=== PATIENT | female | born 1965 | race Caucasian/White ===

== ENCOUNTER 2016-12-23 20:30 | Inpatient (IN) | payer OTHER ==
--- NOTE | ~2016-12-23 | CN ---
Consultation Report [facility] [address] [place]. [address] NAME: CHIKA MALAGON : 63 STATUS : ADM IN [facility]#: [id number] AGE: 51 ADM/REG DATE : 12/23/16 MR#: [id number] REPORT SERV DATE: 12/24/16 DICTATED BY: EMMY ROE DATE: 12/24/16 REPORT STATUS : Draft TRANSCRIBED BY: MODRony DATE: 12/24/16 NEPHROLOGY CONSULTATION DATE OF CONSULTATION: 12/24/2016 INDICATION FOR EVALUATION: Acute kidney injury. HISTORY OF PRESENT ILLNESS: Ms. Malagon is a 51-year-old female, who is seen for acute kidney injury following admission for weakness, nausea, and decreased p.o. intake. Her creatinine was 0.46 in 2012 and marcos to 6.08 on 12/23/2016 with a sodium of 127 and a potassium of 3.8. She apparently was using nonsteroidal antiinflammatory drugs frequently including Mobic and Aleve, was on lisinopril and Maxzide at home. Upon presentation, CT scan of the abdomen was obtained and she was found to have long segment colitis. Her kidney anatomy appeared to be intact with no evidence of hydronephrosis or mass. She was hypotensive on arrival with a blood pressure of 80/50. Since admission, she has been on pressors, which are now on hold. Received IV fluids and undergone antibiotic therapy with improvement. Her creatinine has improved to 3.48, procalcitonin is 38.5, potassium 4.1, sodium 130. PAST MEDICAL HISTORY: Recent liposuction, irritable bowel syndrome with constipation, left breast cancer, status post surgeries, chemotherapy radiation, osteoarthritis, fibromyalgia, positive JOCELYNE. PAST SURGICAL HISTORY: Cholecystectomy and left breast surgery, liposuction, hysterectomy, left knee surgery, history of right chest port which has been removed. SOCIAL HISTORY: Smokes half pack a day for years. Drinks alcohol daily, but none x5 days, is , and uses no illicit drugs. FAMILY HISTORY: Mother with kidney failure. No family members with requiring dialysis. Father with hypertension, heart disease, more distant relatives with diabetes. REVIEW OF SYSTEMS: HEENT: No change in visual acuity. No sinusitis, epistaxis, pharyngitis. PULMONARY: Has had some shortness of breath. No cough or hemoptysis. CARDIAC: Denies chest pain. No recent lower extremity edema. GI: Recent nausea, decreased p.o. intake. Some loose stools with typical history of chronic constipation. : No gross hematuria, dysuria, pyuria. Urine output may have decreased recently. MUSCULOSKELETAL: Pain in back. INTEGUMENT: No rash. No itching. NEUROLOGIC: No seizure activity or lateralizing weakness. Remainder of 12-point review of systems negative. Consultation Report [place] [id number] [place]. [address] NAME: CHIKA MALAGON : 63 STATUS : ADM IN PAT#: [id number] AGE: 51 ADM/REG DATE : 12/23/16 MR#: [id number] REPORT SERV DATE: 12/24/16 DICTATED BY: EMMY ROE DATE: 12/24/16 REPORT STATUS : Draft TRANSCRIBED BY: JASMINE DATE: 12/24/16 PHYSICAL EXAMINATION: VITAL SIGNS: Blood pressure 80/50 on arrival, now 104/61, temp 97.9, respiratory rate 21, pulse 83. GENERAL: Somewhat lethargic white female, arousable, responds appropriately. HEENT: Eyes no scleral icterus. Pupils equal, reactive to light. Nares patent. No discharge. Throat, no injection. Mucous membranes moist. NECK: No thyromegaly, masses, bruits. CHEST/LUNGS: Late crackles laterally. No wheezing. No rhonchi. CARDIAC: Regular rate and rhythm. Unable to appreciate murmur, gallop, or rub. ABDOMEN: Some mild lower abdominal tenderness. No guarding. Bowel sounds are normoactive. No hepatosplenomegaly. : Exam not performed. RECTAL: Exam not performed. BREAST: Exam not performed. EXTREMITIES: No edema. No calf tenderness. DERMIS: No rash. No skin lesions. NEUROLOGIC: Cranial nerves appear intact. No lateralizing weakness. PLAN: 1. Concur with present therapy including IV fluids, antibiotics, and medication adjustments. 2. Avoid nonsteroidal antiinflammatory drugs. 3. Concur with holding CHAR inhibitor, presently appears to be resolving acute kidney injury and will likely to avoid any dialysis therapy. LILA/JASMINE Emmy Roe M.D. / [id number] CC: Danish Leigh M.D.
--- NOTE | ~2016-12-23 | HP ---
History And Physical [place] [id number] [facility] [place]. [address] NAME: CHIKA ROMERO : 63 STATUS : ADM IN PAT#: [id number] AGE: 51 ADM/REG DATE : 12/23/16 MR#: [id number] REPORT SERV DATE: 12/24/16 DICTATED BY: TYESHA NUNES DATE: 12/24/16 REPORT STATUS : Draft TRANSCRIBED BY: MODRony DATE: 12/24/16 DATE OF ADMISSION: 12/23/2016 CHIEF COMPLAINT: Not feeling well since recent liposuction. HISTORY OF PRESENT ILLNESS: The patient is a 51-year-old female with past medical history of left breast cancer, status post chemoradiation and multiple surgeries, who approximately 6 days ago was in [place] to have liposuction from abdomen to breast tissue. After the procedure, was doing okay, but used up all her pain medications, was prescribed Naprosyn and tramadol afterwards, but got sick after taking 1 morning's worth of Naprosyn, has been on chronic Mobic including blood pressure medications. [id number], who is at bedside reports that the patient stopped drinking and eating throughout the whole week, has only drank approximately a quarter for about 4 ounces from a Sprite bottle, but has not really taken much in or out. The patient does report she still is urinating, but due to not really taking much in she has not really put as much out. The patient does report that she does have IBS history, but has had an irregularity in which she is not having diarrhea after these episodes. Weakness has been chronic, constant, moderate severity for the last week, has had abdominal discomfort that has been dull without radiation. No nausea, vomiting, but has had diarrhea, which typically has IBS related constipation, mild fever, no chills. No redness, palpitations, or wheezing. Nothing worsening or relieving symptoms. Symptoms still currently present. Pain was approximately 4/10 at baseline. REVIEW OF SYSTEMS: Additional 10-point review of systems is negative except for that noted in the HPI. PAST MEDICAL HISTORY: IBS, constipation variant; breast cancer in 2009 on the left side with chemoradiation and multiple surgeries; fibromyalgia; arthritis; JOCELYNE positive. SURGERIES: Liposuction last week in which she had liposuction from abdominal cavity to breast cavity. Additionally, has had history of breast surgeries, hysterectomy, gallbladder, hemorrhoids, left knee, and port on right chest wall with subsequent removal as the patient reported that the port kept getting inverted. SOCIAL HISTORY: The patient has history of half pack per day history for many years, but stopped approximately two days ago. Alcohol history, she drinks approximately two [place], which does have vodka on a daily basis, but last drink was approximately 5 days ago, but does not have any withdrawal type symptoms. Denies any illicits use. Previous occupation was in [place]. FAMILY HISTORY: No diabetes, coronary artery disease, but positive for hypertension. No cancers or CVA. ALLERGIES: ALLERGIES TO ADHESIVE TAPE, SULFASALAZINE, AND TRAMADOL. HOME MEDICATIONS: Fioricet p.r.n., Zyrtec, Klonopin, Cymbalta, Neurontin, Femara, Prinivil, lovastatin, Mobic, Robaxin, Nitrostat, nystatin, Prilosec, trazodone, Maxzide. History And Physical [address] [address] NAME: CHIKA ROMERO : 63 STATUS : ADM IN [facility]#: [id number] AGE: 51 ADM/REG DATE : 12/23/16 MR#: [id number] REPORT SERV DATE: 12/24/16 DICTATED BY: TYESHA NUNES DATE: 12/24/16 REPORT STATUS : Draft TRANSCRIBED BY: JASMINE DATE: 12/24/16 PHYSICAL EXAMINATION: VITAL SIGNS: Blood pressure initially 80/50, temperature 96.8, pulse 100, respirations 19, O2 sats 96%. GENERAL: In no acute distress, but significantly older than stated age with wrinkling of skin. EYES: No scleral icterus. EOMI. ENT: Very dry mucous membranes. Tongue midline. RESPIRATORY: Clear to auscultation. No wheezes. CARDIOVASCULAR: Mildly tachycardic. No rubs. GASTROENTEROLOGY: Mildly tender to palpation in the lower abdominal quadrants, but positive bowel sounds. Negative rebound. GENITOURINARY: Deferred. MUSCULOSKELETAL: Does move all extremities x4. Symmetrical hand strength. SKIN: Wrinkling of the skin throughout, tanned skin and bronzing from radiation on chest wall. LYMPHATIC: No pedal edema. HEMATOLOGIC: No bleeding or bruising. NEUROLOGIC: Alert and oriented. Moves all extremities x4. Symmetrical smile. PSYCHIATRIC: Appropriate mood and affect. LABORATORY AND DIAGNOSTIC DATA: EKG; normal sinus rhythm with mildly prolonged QT at 487, rate 93. No peaked T waves. Lactate 0.9. CBC: WBC count 20.7, H and H 11.2 and 32.6 with MCV of 103.2, platelets 196. INR 1.1. Urinalysis: Negative leukocyte esterase and nitrites. Trace ketones, [address] abdomen and pelvis: Long segment colitis involving the ascending, transverse, and descending colon. No pericolonic abscess, mild infiltration of subcutaneous fat planes consistent with history of recent liposuction. Partially imaged apparent left breast reconstruction as well as postsurgical changes of cholecystectomy and hysterectomy. CMP: Sodium 127, potassium 3.8, chloride 86, bicarb 23, BUN and creatinine 60 and 6.08, glucose of 85, calcium 7.8, albumin 2.8. Total protein 7.6, with globulin of 4.8, alkaline phosphatase 112. LFTs within normal limits. CPK 138, lipase 148. ASSESSMENT AND PLAN: 1. Acute kidney injury. 2. Colitis. 3. Systemic inflammatory response syndrome. 4. Hypotension. 5. Recent liposuction. 6. Irritable bowel syndrome with constipation. 7. Breast cancer history. 8. Tobacco use. 9. Daily alcohol use. 10.Hypovolemic hyponatremia. 11.Microcytic anemia. PLAN: 1. For TONY, has taken 1 day of Naprosyn, but was not able to tolerate, has been taking History And Physical [address] [address] NAME: CHIKA ROMERO : 63 STATUS : ADM IN [facility]#: [id number] AGE: 51 ADM/REG DATE : 12/23/16 MR#: [id number] REPORT SERV DATE: 12/24/16 DICTATED BY: TYESHA NUNES DATE: 12/24/16 REPORT STATUS : Draft TRANSCRIBED BY: JASMINE DATE: 12/24/16 Mobic, lisinopril, HCTZ triamterene, CHAR inhibitor, and is currently hypovolemic, hypotensive. As the patient has had decreased p.o. intake, IV fluids given in the emergency room. No peak T-waves on EKG. Monitor urine lytes, serial BMP, ultrasound of kidneys. We will also additionally consult Nephrology in a.m. due to the patient's prior creatinine of 0.4, currently 6, but is still making urine. 2. Colitis. IV fluids, IV antibiotics. Zosyn given in the emergency room. Need to rule out C diff given WBC count greater than 20,000 and although the patient does have IBS typically has constipation variant, has been reporting having diarrhea throughout the week since procedure. 3. SIRS. Treat colitis, IV fluids. TONY. IV antibiotics given in the emergency room. Tachycardia, improving. Does have leukocytosis, rule out additional infectious etiologies for colitis. 4. Hypotension. Severe volume depleted, IV fluids, hold blood pressure medications. Hold parameters on pain medications additionally. 5. Recent surgery liposuction, monitor. 6. IBS, constipation variant. 7. Breast cancer. Monitoring with oncologist outpatient. 8. Tobacco use. Nicotine patch. Counseled. 9. Daily alcohol use. Last drink Saturday. However, the patient does take daily Klonopin. She will continue home Klonopin, was mildly decreased secondary to hypotension. 10.Hypovolemic hyponatremia. Serial BMP as the patient has approximately received 3 L of LR in the emergency room. Check osmolality and urine studies, decrease the D5 half- normal and reassess sodium balance for repeat. 11.Microcytic anemia. Check B12, folate, iron studies. 12.Guarded disposition. Discussed with the patient and family at bedside. DDN/MODL Tyesha Nunes MD / [id number] CC: Danish Fam M.D.
--- NOTE | ~2016-12-23 | DS ---
Discharge Summary [facility] [address] [place]. [address] NAME: CHIKA ROMERO : 63 STATUS : DIS IN PAT#: [id number] AGE: 51 ADM/REG DATE : 12/23/16 MR#: [id number] REPORT SERV DATE: 12/26/16 DICTATED BY: DATE: REPORT STATUS : Draft TRANSCRIBED BY: MODL DATE: 12/25/16 ADMISSION DATE: 12/23/2016 DISCHARGE DATE: 12/25/2016 The patient was admitted to the [facility]. ATTENDING PHYSICIAN: Andrews Nj M.D. CONSULTANTS: Dr. Quinton García of Nephrology. DISCHARGE DIAGNOSES: 1. Systemic inflammatory response syndrome, no evidence of infectious source. 2. Hypovolemic shock, resolved. Briefly requiring pressors. Off pressors for 24 hours prior to discharge with systolic blood pressure in the 130 range. 3. Acute kidney injury, resolved. Due to severe dehydration with probable acute tubular necrosis. Home nephrotoxic medications remain on hold at discharge. 4. Hyponatremia due to hypovolemia, resolved. 5. Metabolic acidosis due to acute kidney injury, resolved. 6. Possible evidence of radiographic colitis, suspect watershed. Stool studies negative for infectious causes. 7. Anemia of chronic disease, no evidence of iron, B12, or folate deficiency. 8. Recent liposuction, question adverse reaction to anesthesia. 9. History of breast cancer. 10.Fibromyalgia. 11.Irritable bowel syndrome. 12.Tobacco abuse. 13.Daily alcohol use. 14.Osteoarthritis. 15.History of a positive JOCELYNE. 16.Benzodiazepine-dependent generalized anxiety disorder. 17.Hypertension, antihypertensives held at discharge. 18.Hyperlipidemia. IMAGIN. CT abdomen and pelvis without contrast, 12/23, shows long-segment colitis pattern involving the ascending, transverse, descending colon. No pericolonic abscess. Mild infiltration of subcutaneous fat planes in the anterior lower abdomen and pelvic wall, consistent with history of recent liposuction procedure. No focal circumscribed fluid or abscess collection. Partially imaged apparent left breast reconstruction as well as postsurgical changes of cholecystectomy and hysterectomy. 2. Portable chest x-ray, 12/23, no acute cardiopulmonary abnormality. 3. Renal ultrasound, 12/24, shows no obstruction. Bladder normal. PERTINENT LABORATORY DATA: White blood cell count at admission 20.7 and 12.3 at discharge, hemoglobin 10.4, hematocrit 29.7, platelets 202. Initial procalcitonin 39 and 11 at discharge. Lactic acid level negative. Comprehensive metabolic panel pertinent for Discharge Summary [facility] [place]. [address] NAME: CHIKA ROMERO : 63 STATUS : DIS IN PAT#: [id number] AGE: 51 ADM/REG DATE : 12/23/16 MR#: [id number] REPORT SERV DATE: 12/26/16 DICTATED BY: DATE: REPORT STATUS : Draft TRANSCRIBED BY: MODL DATE: 12/25/16 creatinine initially 6.08 and 1.55 at discharge. Initial BUN 60 and 38 at discharge. Initial bicarbonate 23 and 27 at discharge. Liver enzymes normal. CPK normal. Iron 54, iron binding capacity 216, ferritin 788. Cortisol level is greater than 100. Folate and B12 were normal. Urinalysis, positive for trace ketones. Blood cultures x2 were negative. Fecal white blood cell count was 0, and stool for C diff PCR toxin testing was negative. BRIEF HISTORY: For full details, please see the previously dictated history of present illness by Dr. Oniel Nunes. This is a 51-year-old white female, who had liposuction six days prior to admission, at [place], and did not do particularly well afterwards. She was taking multiple different pain medications, as well as home pain medicines and muscle relaxants. She was also taking her home nonsteroidal anti-inflammatories and blood pressure medications, including Maxzide and lisinopril. She had very poor oral intake over the postop course and was noted to be sleeping all the time by family. They brought her to the emergency department for evaluation of these symptoms, where her initial blood pressure was found to be 80/50, initial white count of 20, and initial creatinine of 6.08. A CT abdomen and pelvis was suggestive of long-segment colitis, and the patient was admitted to the [facility] for further management. HOSPITAL COURSE: The patient was managed in the IMCU with copious IV fluids, brief-duration Levophed drip, and IV Zosyn. She had a catheter placed for strict I and O monitoring. Her urine output improved in response to IV fluids as did her blood pressure. She was able to be titrated off her Levophed on the morning of 12/24. Her blood pressure remained stable as did urine output, and she was able to be transferred out of the IMCU on the morning of 12/25. Despite the elevated white blood cell count and procalcitonin, no infectious source could be determined this admission. Blood cultures, urinalysis, stool studies were all negative for any evidence of infection. Thus, she is felt probably to have systemic inflammatory response syndrome due to severe dehydration with associated hypovolemic shock and acute kidney injury due to hypovolemia and ATN preceding admission. All of her lab abnormalities improved or resolved by the time of discharge on the afternoon of 12/25 when her creatinine was found to be 1.55, and hyponatremia and metabolic acidosis had resolved as well. She was tolerating an oral diet and up and ambulatory without any difficulty. DISCHARGE DISPOSITION: The patient is being discharged to home with her supportive and no specific activity or dietary restrictions, aside from a cardiac diet for comorbid hypertension. She will follow up with her primary care provider by Saturday of this week and will contact him for an appointment following discharge. Several medications will remain on hold at discharge until she can be seen by her primary care provider. Her also expressed Discharge Summary [place] [id number] [place]. [address] NAME: CHIKA ROMERO : 63 STATUS : DIS IN PAT#: [id number] AGE: 51 ADM/REG DATE : 12/23/16 MR#: [id number] REPORT SERV DATE: 12/26/16 DICTATED BY: DATE: REPORT STATUS : Draft TRANSCRIBED BY: MODL DATE: 12/25/16 concern for polypharmacy. Changes in her discharge medication regimen are to be outlined below, and the patient is encouraged to follow up with her salesperson parts, Dr. Luana Khan, regarding any ongoing medication concerns. DISCHARGE MEDICATIONS: Include: 1. Cymbalta 60 mg p.o. q.a.m. 2. Gabapentin 300 mg p.o. three times a day. 3. Letrozole 2.5 mg p.o. q.a.m. 4. Zyrtec 10 mg p.o. q.a.m. p.r.n. allergies. 5. Lovastatin 10 mg p.o. q.h.s. 6. Prilosec 20 mg p.o. q.a.m. 7. Trazodone 100 mg p.o. q.h.s. 8. Klonopin 2 mg p.o. three times a day as needed for anxiety. 9. Robaxin 750 mg p.o. three times a day as needed for muscle spasm or back pain. 10.Nystatin cream applied to rash as needed. 11.Sublingual nitroglycerin 0.4 mg as needed. 12.Fioricet one tab p.o. twice a day as needed for headache. Medications which are currently being held include lisinopril 20 mg p.o. q.a.m., Mobic 15 mg p.o. q.a.m., Maxzide 37.5/25 mg p.o. q.a.m., and any anti-inflammatories which the patient has historically taken including Naprosyn, ibuprofen, Motrin, Aleve, etc. 35 minutes were spent in completion of the discharge. LYSSA/JASMINE Irwin Hayes M.D. / [id number] CC: Danish Muro M.D. Elizabeth Turner, M.D.
[2016-12-23 21:36] LABS: BASOPHILS 0 %; BASOPHILS ABSOLUTE 0.01 10/3/uL (0.0-0.16); EOSINOPHILS 0.7 %; EOSINOPHILS ABSOLUTE 0.14 10/3/uL (0.0-0.53); HEMOGLOBIN 11.2 g/dL (12.0-16.0); IMMATURE GRANULOCYTES 0.7 %; IMMATURE GRANULOCYTES ABSOLUTE 0.14 10/3/uL (0.0-0.11); LYMPHOCYTES ABSOLUTE 1.87 10/3/uL (0.67-4.30); MEAN CORPUS HGB CONC 34.4 g/dL (32.0-36.0); MEAN CORPUSCULAR HEMOGLOB 35.4 pg (26.0-34.0); MONOCYTES 7.5 %; MONOCYTES ABSOLUTE 1.55 10/3/uL (0.21-1.20); NEUTROPHILS 82.1 %; NEUTROPHILS ABSOLUTE 16.98 10/3/uL (2.02-8.40); PLATELET COUNT 196 10/3/uL (150-400); RBC DISTRIBUTION WIDTH 14.3 % (12.0-16.0); RED CELL COUNT 3.16 10/6/uL (4.0-5.6)
[2016-12-23 21:37] LABS: HEMATOCRIT 32.6 % (36.0-48.0); MANUAL DIFF NO %; MEAN CORPUSCULAR VOLUME 103.2 fL (80-100); WHITE BLOOD CELLS 20.7 10/3/uL (4.5-10.5)
[2016-12-23 21:43] LABS: INTERNATIONAL NORMAL RATI 1.1 UNITS (-); PARTIAL THROMBO TIME 34.1 SEC (22.5-37.2); PROTIME (NOT ORD) 14.2 SEC (12.0-14.5)
[2016-12-23 21:51] LABS: GLUCOSE, SERUM 85 MG/DL (60-99); POTASSIUM, SERUM 3.8 MMOL/L (3.5-5.3); SGOT(AST) 32 U/L (5-40); SGPT(ALT) 26 U/L (5-65); TOTAL BILIRUBIN 0.8 MG/DL (0-1.2); TOTAL PROTEIN 7.6 G/DL (6.0-8.5)
[2016-12-23 21:53] LABS: LACTATE 0.9 MMOL/L (0.3-2.4)
[2016-12-23 21:57] LABS: A/G RATIO 0.6 (0.7-1.9); ALBUMIN 2.8 G/DL (3.5-5.0); ALKALINE PHOSPHATASE 112 U/L (45-117); BUN (BLOOD UREA NITROGEN) 60 MG/DL (6-23); CALCIUM, SERUM 7.8 MG/DL (8.5-10.4); CHLORIDE, SERUM 86 MMOL/L (96-112); CO2 (CARBON DIOXIDE) 23 MMOL/L (24-34); CREATININE 6.08 MG/DL (0.55-1.02); GFR AFRICAN AMERICAN 8 ML/MIN (>=60); GFR NON AFRICAN AMERICAN 7 ML/MIN (>=60); GLOBULIN 4.8 G/DL (2.5-4.1); SODIUM, SERUM 127 MMOL/L (135-148)
[2016-12-23 22:18] LABS: WBC (NOT ORDERED) (RFLEX) 0 (0-5)
[2016-12-23 22:24] LABS: ASCORBIC ACID (UR NOT ORDER) NEG (NEG); BILIRUBIN, URINE SMALL (NEG); ER URINALYSIS TAT 0 Hrs 07 Mins; KETONE, URINE TRACE MG/DL (NEG); LEUKOCYTE ESTERASE(NOT OR NEG (NEG); NITRITE (URINE) NEG (NEG)
[2016-12-23 22:42] LABS: CPK 138 U/L (0-200)
[2016-12-23] MEDS ORDERED: METHOC750B PO (22:50)
[2016-12-23] MEDS ORDERED: TRAZ100 PO (22:51)
[2016-12-23] MEDS ORDERED: ZYRTEC ALLGY10 MG PO (22:52)
[2016-12-23] MEDS ORDERED: CYMBALTA60 PO (22:53)
[2016-12-23] MEDS ORDERED: NEUR300 PO (22:54)
[2016-12-23] MEDS ORDERED: PRIN20 PO (22:54)
[2016-12-23] MEDS ORDERED: FEMARA PO (22:54)
[2016-12-23] MEDS ORDERED: PRILO PO (22:55)
[2016-12-23] MEDS ORDERED: MAX25 PO (22:55)
[2016-12-23] MEDS ORDERED: MOBIC15 MG PO (22:55)
[2016-12-23] MEDS ORDERED: MEVACOR10 MG PO (22:56)
[2016-12-23] MEDS ORDERED: KLONO2 PO (22:56)
[2016-12-23] MEDS ORDERED: MYCOSCROI TOP (22:56)
[2016-12-23] MEDS ORDERED: NITROSTAT0.4 MG SL (22:57)
[2016-12-23] MEDS ORDERED: FIORICET 50-301 EACH PO (22:58)
[2016-12-24 01:26] LABS: CALCIUM, SERUM 7.6 MG/DL (8.5-10.4); CHLORIDE, SERUM 93 MMOL/L (96-112); CO2 (CARBON DIOXIDE) 24 MMOL/L (24-34); GFR AFRICAN AMERICAN 11 ML/MIN (>=60); GFR NON AFRICAN AMERICAN 10 ML/MIN (>=60); GLUCOSE, SERUM 84 MG/DL (60-99); POTASSIUM, SERUM 3.6 MMOL/L (3.5-5.3); SODIUM, SERUM 131 MMOL/L (135-148)
[2016-12-24 01:28] LABS: BUN (BLOOD UREA NITROGEN) 54 MG/DL (6-23); CREATININE 4.78 MG/DL (0.55-1.02)
[2016-12-24 06:43] LABS: BASOPHILS 0.1 %; BASOPHILS ABSOLUTE 0.01 10/3/uL (0.0-0.16); EOSINOPHILS 0.4 %; EOSINOPHILS ABSOLUTE 0.06 10/3/uL (0.0-0.53); HEMATOCRIT 29.5 % (36.0-48.0); HEMOGLOBIN 10.2 g/dL (12.0-16.0); IMMATURE GRANULOCYTES 0.4 %; IMMATURE GRANULOCYTES ABSOLUTE 0.06 10/3/uL (0.0-0.11); LYMPHOCYTES 4.2 %; LYMPHOCYTES ABSOLUTE 0.64 10/3/uL (0.67-4.30); MEAN CORPUS HGB CONC 34.6 g/dL (32.0-36.0); MEAN CORPUSCULAR HEMOGLOB 35.3 pg (26.0-34.0); MEAN CORPUSCULAR VOLUME 102.1 fL (80-100); MEAN PLATELET VOLUME 10.3 fL (9.2-13.0); MONOCYTES 2.9 %; MONOCYTES ABSOLUTE 0.44 10/3/uL (0.21-1.20); NEUTROPHILS ABSOLUTE 14.16 10/3/uL (2.02-8.40); PLATELET COUNT 199 10/3/uL (150-400); RBC DISTRIBUTION WIDTH 14.3 % (12.0-16.0); RED CELL COUNT 2.89 10/6/uL (4.0-5.6); WHITE BLOOD CELLS 15.4 10/3/uL (4.5-10.5)
[2016-12-24 06:46] LABS: MANUAL DIFF NO %
[2016-12-24 07:27] LABS: A/G RATIO 0.7 (0.7-1.9); ALBUMIN 2.7 G/DL (3.5-5.0); ALKALINE PHOSPHATASE 102 U/L (45-117); BUN (BLOOD UREA NITROGEN) 43 MG/DL (6-23); CALCIUM, SERUM 7.7 MG/DL (8.5-10.4); CHLORIDE, SERUM 95 MMOL/L (96-112); CO2 (CARBON DIOXIDE) 22 MMOL/L (24-34); CREATININE 3.48 MG/DL (0.55-1.02); FERRITIN 788 NG/ML (8-252); FOLATE 7.5 NG/ML (>5.2); GFR AFRICAN AMERICAN 17 ML/MIN (>=60); GFR NON AFRICAN AMERICAN 14 ML/MIN (>=60); GLOBULIN 3.8 G/DL (2.5-4.1); GLUCOSE, SERUM 91 MG/DL (60-99); IRON BINDING CAPACITY 216 MCG/DL (225-410); IRON, SERUM 54 MCG/DL (35-150); POTASSIUM, SERUM 4.1 MMOL/L (3.5-5.3); SGOT(AST) 29 U/L (5-40); SGPT(ALT) 18 U/L (5-65); SODIUM, SERUM 130 MMOL/L (135-148); TOTAL BILIRUBIN 0.7 MG/DL (0-1.2); TOTAL PROTEIN 6.5 G/DL (6.0-8.5)
[2016-12-24 08:04] LABS: PROCALCITONIN 38.59 ng/mL (<0.5)
[2016-12-24 12:17] LABS: CALCIUM, SERUM 7.9 MG/DL (8.5-10.4); CHLORIDE, SERUM 94 MMOL/L (96-112); POTASSIUM, SERUM 4.2 MMOL/L (3.5-5.3); SODIUM, SERUM 132 MMOL/L (135-148)
[2016-12-24 12:18] LABS: BUN (BLOOD UREA NITROGEN) 50 MG/DL (6-23); CO2 (CARBON DIOXIDE) 27 MMOL/L (24-34); CREATININE 2.79 MG/DL (0.55-1.02); GFR AFRICAN AMERICAN 22 ML/MIN (>=60); GFR NON AFRICAN AMERICAN 19 ML/MIN (>=60); GLUCOSE, SERUM 111 MG/DL (60-99)
[2016-12-24 17:54] LABS: BUN (BLOOD UREA NITROGEN) 44 MG/DL (6-23); CALCIUM, SERUM 8.3 MG/DL (8.5-10.4); CHLORIDE, SERUM 99 MMOL/L (96-112); CO2 (CARBON DIOXIDE) 25 MMOL/L (24-34); CREATININE 2.03 MG/DL (0.55-1.02); GFR AFRICAN AMERICAN 32 ML/MIN (>=60); GFR NON AFRICAN AMERICAN 27 ML/MIN (>=60); GLUCOSE, SERUM 110 MG/DL (60-99); POTASSIUM, SERUM 4.1 MMOL/L (3.5-5.3); SODIUM, SERUM 134 MMOL/L (135-148)
[2016-12-25 04:42] LABS: BASOPHILS 0.1 %; BASOPHILS ABSOLUTE 0.01 10/3/uL (0.0-0.16); EOSINOPHILS 0.4 %; EOSINOPHILS ABSOLUTE 0.05 10/3/uL (0.0-0.53); HEMATOCRIT 29.7 % (36.0-48.0); HEMOGLOBIN 10.4 g/dL (12.0-16.0); IMMATURE GRANULOCYTES 0.3 %; IMMATURE GRANULOCYTES ABSOLUTE 0.04 10/3/uL (0.0-0.11); LYMPHOCYTES 14.7 %; LYMPHOCYTES ABSOLUTE 1.81 10/3/uL (0.67-4.30); MEAN CORPUSCULAR HEMOGLOB 35.4 pg (26.0-34.0); MEAN PLATELET VOLUME 10.1 fL (9.2-13.0); MONOCYTES 4.9 %; NEUTROPHILS 79.6 %; NEUTROPHILS ABSOLUTE 9.83 10/3/uL (2.02-8.40); PLATELET COUNT 202 10/3/uL (150-400); RBC DISTRIBUTION WIDTH 14.2 % (12.0-16.0); RED CELL COUNT 2.94 10/6/uL (4.0-5.6); WHITE BLOOD CELLS 12.3 10/3/uL (4.5-10.5)
[2016-12-25 04:43] LABS: MANUAL DIFF NO %
[2016-12-25 04:56] LABS: CALCIUM, SERUM 8.1 MG/DL (8.5-10.4); CHLORIDE, SERUM 101 MMOL/L (96-112); CO2 (CARBON DIOXIDE) 27 MMOL/L (24-34); CREATININE 1.55 MG/DL (0.55-1.02); GFR AFRICAN AMERICAN 44 ML/MIN (>=60); GFR NON AFRICAN AMERICAN 38 ML/MIN (>=60); GLUCOSE, SERUM 104 MG/DL (60-99); POTASSIUM, SERUM 3.5 MMOL/L (3.5-5.3); SODIUM, SERUM 137 MMOL/L (135-148)
[2016-12-25 04:59] LABS: BUN (BLOOD UREA NITROGEN) 38 MG/DL (6-23)
== END 2016-12-25 18:26 | disposition home or self-care (01) | DRG 682 ==
LOC: ER 20:30 → 2SO 23:59 → 6NO 12-24 01:24 → IMCU 12-24 03:50 → 4SO 12-25 14:45
PROVIDERS: Internal Medicine; Specialist; Student in an Organized Health Care Education/Training Program
DX: N17.0 Acute kidney failure with tubular necrosis (principal); R65.11 Systemic inflammatory response syndrome (SIRS) of non-infectious origin with acute organ dysfunction; R57.1 Hypovolemic shock; E87.1 Hypo-osmolality and hyponatremia; E87.2 Acidosis; K55.8 Other vascular disorders of intestine; T39.395A Adverse effect of other nonsteroidal anti-inflammatory drugs [NSAID], initial encounter; K58.1 Irritable bowel syndrome with constipation; Z85.3 Personal history of malignant neoplasm of breast; T46.5X5A Adverse effect of other antihypertensive drugs, initial encounter; Z72.0 Tobacco use; Y92.009 Unspecified place in unspecified non-institutional (private) residence as the place of occurrence of the external cause; Z98.890 Other specified postprocedural states; Z90.12 Acquired absence of left breast and nipple; Z92.21 Personal history of antineoplastic chemotherapy; Z92.3 Personal history of irradiation; M79.7 Fibromyalgia; Z88.2 Allergy status to sulfonamides; Z88.8 Allergy status to other drugs, medicaments and biological substances; Z91.048 Other nonmedicinal substance allergy status; Z79.891 Long term (current) use of opiate analgesic; F10.10 Alcohol abuse, uncomplicated; E86.0 Dehydration; D63.8 Anemia in other chronic diseases classified elsewhere; E78.5 Hyperlipidemia, unspecified; F41.1 Generalized anxiety disorder
CPT/HCPCS: 71010; 74176; 76775; 80048; 80053; 81001; 82533; 82550; 82570; 82607; 82728; 82746; 83540; 83550; 83605; 83690; 83735; 83930; 83935; 84145; 84300; 85025; 85610; 85730; 87040; 87045; 87046; 87046-59; 87493; 87493-59; 87899; 87899-59; 89055; 93005; 96365; 99285; A9270-GY; J1720; J2405; J2543; J3010; P9047